=== PATIENT | female | born 1985 | race Caucasian/White ===

== ENCOUNTER 2017-12-17 19:45 | Emergency (ER) | payer BC ==
[2017-12-17 20:22] VITALS: O2SAT 96
--- NOTE | 2017-12-17 20:57 | ERPHSYRPT ---
- History of Present Illness Time Seen by Provider: 12/17/17 20:30 Historian: patient Exam Limitations: clinical condition Patient Subjective Stated Complaint: Pt states "I have been fighting bronchitis since and I have had this chest pain for the past week. My two sisters are nurses and they told me I need to go to the ER. I have an appointment with Dr. Cavanaugh on tuesday. Right now my chest does not hurt that bad." Triage Nursing Assessment: Pt alert and oriented X 3, skin pwd. Pt ambulates without difficutly, able to speak in clear full sentences. No apparent distress. Physician History: PATIENT COMPLAINS OF INTERMITTENT EPISODES OF BRONCHITIS X 6 WEEKS, TREATED WITH A 10 DAYS COURSE OF AMOXICILLIN, COURSE OF STEROIDS, NOW HAS INTERMITTENT LEFT UPPER CHEST PAIN WORSE UPON COUGHING. DENIES FEVER OR DYSPNEA. Timing/Duration: week(s) (X 6) Activities at Onset: activity Quality: pressure, sharpness Location: other (LEFT UPP) Severity of Pain-Max: mild Severity of Pain-Current: mild Modifying Factors: Improves With: coughing Associated Symptoms: denies symptoms Prior Chest Pain/Cardiac Workup: no prior cardiac workup Nitro Today/Relief: no nitro taken today Aspirin Treatment Today: no aspirin today Allergies/Adverse Reactions: No Known Drug Allergies Allergy (Unverified 12/17/17 20:22) Home Medications: Lisinopril 10 mg [Zestril 10 MG] 10 mg PO DAILY 12/17/17 [History] Hx Tetanus, Diphtheria Vaccination/Date Given: No Hx Influenza Vaccination/Date Given: No Hx Pneumococcal Vaccination/Date Given: No Immunizations Up to Date: Yes - Past Medical History Neurological History: No Pertinent History Cardiac History: No Pertinent History Respiratory History: No Pertinent History Endocrine Medical History: No Pertinent History Musculoskeletal History: No Pertinent History Other Medical History: hypertension - Past Surgical History Past Surgical History: Yes Other Surgical History: ablasion. c section X 2 - Social History Smoking Status: Never smoker Exposure to second hand smoke: No Drug Use: none Patient Lives Alone: No - Female History Hx Last Menstrual Period: 12/05/2017 Hx Now: No - Nursing Vital Signs Nursing Vital Signs: Initial Vital Signs Temperature 99.2 F 12/17/17 20:14 Pulse Rate 92 H 12/17/17 20:14 Respiratory Rate 18 12/17/17 20:14 Blood Pressure 144/92 12/17/17 20:14 O2 Sat by Pulse Oximetry 96 12/17/17 20:14 Pain Scale Pain Intensity 6 - Physical Exam SpO2: 96 Oxygen Delivery: Room Air - Course EKG Interpreted by Me: RATE, Sinus Rhythm, NORMAL AXIS - Radiology Exams Chest X-ray Interpretation: Interpreted by me, Negative Ordered Tests: Active Orders 24 hr Category Date Time Status IV Insertion STAT Care 12/17/17 21:20 Active CHEST 2 VIEWS (PA AND LAT) Stat Exams 12/17/17 20:50 Completed BMP Stat Lab 12/17/17 21:07 Completed CBC W DIFF Stat Lab 12/17/17 21:07 Completed D-DIMER QUANTITATION Stat Lab 12/17/17 21:07 Completed HCG,QUALITATIVE URINE Stat Lab 12/17/17 20:50 Ordered Medication Summary Generic Name Dose Route Start Last Admin Trade Name Freq PRN Reason Stop Dose Admin Sodium Chloride 1,000 mls @ 100 mls/hr 12/17/17 21:00 12/17/17 21:17 Sodium Chloride 0.9% 1000 Ml IV 01/16/18 20:59 100 mls/hr .Q10H ZAIN Administration Discontinued Medications Generic Name Dose Route Start Last Admin Trade Name Freq PRN Reason Stop Dose Admin Ketorolac Tromethamine 30 mg 12/17/17 22:37 12/17/17 22:44 Toradol 30 Mg Injection IV 12/17/17 22:38 30 mg STAT ONE Administration Ketorolac Tromethamine Confirm 12/17/17 22:42 Toradol 30 Mg Injection Administered 12/17/17 22:43 Dose 30 mg .ROUTE .[facility] ONE Lab/Rad Data: Laboratory Result Diagrams 12/17/17 21:07 12/17/17 21:07 Laboratory Results 12/17/17 12/17/17 12/17/17 Range/Units 21:07 21:07 21:07 WBC 10.8 H (4.0-10.5) K/mm3 RBC 5.06 (4.1-5.4) M/mm3 Hgb 13.7 (12.0-16.0) gm/dl Hct 42.0 (35-47) % MCV 83.0 (78-100) fl MCH 27.1 (26-32) pg MCHC 32.6 (32-36) g/dl RDW 13.3 (11.5-14.0) % Plt Count 239 (150-450) K/mm3 MPV 10.1 H (6-9.5) fl Gran % 59.7 (36.0-66.0) % Lymphocytes % 32.4 (24.0-44.0) % Monocytes % 5.5 (0.0-12.0) % Eosinophils % 1.7 (0.00-5.0) % Basophils % 0.7 (0.0-0.4) % Basophils # 0.07 (0-0.4) D-Dimer 451.25 (0-500) ng/mL Sodium 140 (136-145) mEq/L Potassium 3.7 (3.5-5.1) mEq/L Chloride 102 (98-107) mEq/L Carbon Dioxide 26.9 (21-32) mEq/L Anion Gap 14.4 (5-15) MEQ/L BUN 19 (9-20) mg/dL Creatinine 0.85 (0.55-1.30) mg/dl Estimated GFR > 60 ML/MIN Glucose 129 H (70-110) MG/DL Calcium 8.9 (8.5-10.1) mg/dL - Progress Progress Note: 12/17/17 22:55 ADMINISTERED TORADOL 30MG IV Counseled pt/family regarding: lab results, diagnosis, need for follow-up - Departure Time of Disposition: 23:00 Departure Disposition: Home Clinical Impression: PLEURISY Condition: Stable Critical Care Time: No Referrals: ALAN CAVANAUGH MD [Primary Care Provider] - Additional Instructions: TORADOL 10MG EVERY 6 HOURS NEEDED FOR PAIN. CONSULT YOUR PRIMARY CARE PROVIDER FOR FOLLOWUP SCHEDULED. RETURN TO EMERGENCY FOR INCREASING DISCOMFORT Prescriptions: Ketorolac Tromethamine [Toradol] 10 mg PO Q6HPRN PRN #20 tablet PRN Reason: Pain
[2017-12-17] MEDS ORDERED: Sodium Chloride 0.9% 1000 ML 1,000 ML ONE (20:59)
[2017-12-17] MEDS ORDERED: Sodium Chloride 0.9% 1000 ML 1,000 ML IV SCH (21:00)
--- NOTE | 2017-12-17 21:32 | XRAY ---
Indication: Chest pain. Comparison: None PA/lateral chest demonstrates normal heart, lungs, and bony thorax.
[2017-12-17 21:35] LABS: BASOPHIL % 0.7 % (0.0-0.4); Basophil (Absolute #) 0.07 (0-0.4); Eosinophil % 1.7 % (0.00-5.0); Eosinophil (Absolute #) 0.18 (0-0.5); Granulocyte Absolute (ANC) 6.43 (1.4-6.9); Granulocytes % 59.7 % (36.0-66.0); Hemoglobin 13.7 gm/dl (12.0-16.0); Lymphocyte (Absolute #) 3.48 (1.0-4.6); Lymphocytes % 32.4 % (24.0-44.0); Mean Corpuscular Hemoglobin 27.1 pg (26-32); Mean Corpuscular Hgb Concent. 32.6 g/dl (32-36); Mean Platelet Volume 10.1 fl (6-9.5); Monocyte (Absolute #) 0.59 (0.0-1.3); Monocytes % 5.5 % (0.0-12.0); Platelet Count 239 K/mm3 (150-450); Red Blood Count 5.06 M/mm3 (4.1-5.4); Red Cell Distribution Width 13.3 % (11.5-14.0); White Blood Count 10.8 K/mm3 (4.0-10.5)
[2017-12-17 21:43] LABS: ANION GAP 14.4 MEQ/L (5-15); BLOOD UREA NITROGEN 19 mg/dL (9-20); CHLORIDE 102 mEq/L (98-107); Calcium 8.9 mg/dL (8.5-10.1); Carbon Dioxide 26.9 mEq/L (21-32); Creatinine 1 0.85 mg/dl (0.55-1.30); EST GLOMERULAR FILTRATION RATE > 60 ML/MIN; Glucose 129 MG/DL (70-110); Potassium 3.7 mEq/L (3.5-5.1); SODIUM 140 mEq/L (136-145)
[2017-12-17] MEDS ORDERED: TORAdol 30 mg Injection IV ONE (22:37)
[2017-12-17] MEDS ORDERED: TORAdol 30 mg Injection ONE (22:42)
[2017-12-17 23:28] VITALS: BP 132/88; PULSE 82
== END 2017-12-17 23:28 | disposition home or self-care (01) ==
LOC: ED 19:45
DX: R09.1 Pleurisy (principal)
CPT/HCPCS: 36000; 36415; 71046; 80048; 85025; 85379; 99284; J1885